=== PATIENT | male | born 1980 | race Caucasian/White ===

== ENCOUNTER 2018-07-03 12:52 | Emergency (ER) | payer OTHER ==
[~2018-07-03] VITALS: Ht 170.2 cm; Wt 90.9 kg
[~2018-07-03 12:52] MED LIST: ALLEGRA-D 24HOU1 T24 PO; PROZAC 20MG20 MG PO
[2018-07-03 12:59] VITALS: BP 131/79; TEMP 98.4
[2018-07-03] MEDS ORDERED: AMOXICILLIN 8751 TAB PO (13:44)
[2018-07-03] MEDS ORDERED: ZYRTEC 10MG10 MG PO (13:44)
[2018-07-03] MEDS ORDERED: TYLENOL 500MG500 MG PO (13:45)
[2018-07-03] MEDS ORDERED: SUDAFED30 MG PO (13:45)
[2018-07-03 14:54] VITALS: PULSE 78
== END 2018-07-03 14:55 | disposition home or self-care (01) ==
LOC: COL.ER 12:52
DX: J32.0 Chronic maxillary sinusitis (principal); F41.9 Anxiety disorder, unspecified